=== PATIENT | male | born 1955 | race Caucasian/White ===

== ENCOUNTER 2020-02-22 06:52 | Outpatient (CLI) | payer MEDICARE, SELFPAY ==
--- NOTE | 2020-02-22 | USCV_ITS ---
Kolby Jackson Age: 65 Gender: M : 1955 Exam Date: 02/22/2020 07:18 Ordering Phys: Kasey Springer NP Technologist: Bhaskar Liriano Exam Location: [facility] [place] Indication: STENOSIS Risk Factors: Previous Vascular Surgery: Right Brachial BP: / Left Brachial BP: / Right Left Velocity (cm/s) Spectral Plaque Velocity (cm/s) Spectral Plaque Syst/Diast Broadening Syst/Diast Broadening 74.23/ 17.60 Prox CCA 71.70 / 11.00 78.30/ 14.30 Mid CCA 69.50 / 16.50 65.05/ 13.75 Distal CCA 73.90 / 15.40 82.70/ 15.40 Prox ICA 42.70 / 9.20 86.00/ 19.80 Mid ICA 77.80 / 22.20 71.70/ 18.70 Distal ICA 59.80 / 16.20 102.50 ECA 65.10 1.05 ICA/CCA 1.05 Antegrade Vertebral Antegrade 44.10/ 9.90 cm/s 48.70/ 8.50 cm/s Tri Subclavian Tri 75.00 74.30 CONCLUSIONS Right ICA stenosis <50%. Left ICA stenosis <50%. Normal antegrade Doppler flow noted in the right vertebral artery. Normal antegrade Doppler flow noted in the left vertebral artery. Toribio Castro MD (Electronically Signed) Final Date: 22 February 2020 11:18 S
--- NOTE | 2020-02-22 07:46 | ECG_ITS ---
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 Measurements Intervals [place] Rate: 51 P: -24 IN: 118 QRS: -8 QRSD: 118 T: 28 QT: 470 QTc: 434 Interpretive Statements SINUS BRADYCARDIA WITH SHORT IN INTERVAL POSSIBLE LATERAL MYOCARDIAL INFARCTION [30 ms Q WAVE IN I/aVL/V5/V6], OF INDETERMINATE AGE No previous ECG available for comparison Electronically Signed On 02-22-2020 20:32:04 BROOM MAKER by Rowan Garvey M.D. [email or web address]
== END 2020-02-22 06:53 | disposition home or self-care (01) ==
LOC: US 06:57
PROVIDERS: PCP Nurse Practitioner Family; Visit Provider Nurse Practitioner Family
DX: Z86.73 Personal history of transient ischemic attack (TIA), and cerebral infarction without residual deficits (principal); I65.23 Occlusion and stenosis of bilateral carotid arteries
CPT/HCPCS: 93005; 93880

== ENCOUNTER → 2020-02-29 08:29 | Outpatient (BNVA) | payer MEDICARE, SELFPAY | PROVIDERS: PCP Nurse Practitioner Family; Referring Provider Nurse Practitioner Family; Visit Provider Urology | DX: Z12.5 Encounter for screening for malignant neoplasm of prostate (principal); N35.919 Unspecified urethral stricture, male, unspecified site; N30.00 Acute cystitis without hematuria; R97.20 Elevated prostate specific antigen [PSA]; N40.1 Benign prostatic hyperplasia with lower urinary tract symptoms | CPT/HCPCS: 81003; 87077; 87086; 87184; G0103 ==

== ENCOUNTER → 2020-05-16 15:47 | Outpatient (BNVA) | payer MEDICARE, SELFPAY | PROVIDERS: PCP Nurse Practitioner Family; Visit Provider Internal Medicine | DX: B18.2 Chronic viral hepatitis C (principal); Z80.0 Family history of malignant neoplasm of digestive organs | CPT/HCPCS: 80053; 82105; 85025; 87902 ==

== ENCOUNTER 2020-05-31 07:03 | Outpatient (CLI) | payer MEDICARE, SELFPAY ==
--- NOTE | 2020-05-31 07:15 | US_ITS ---
WS: [id number] ULTRASOUND ABDOMEN LIMITED CLINICAL INFORMATION: B18.2 - Chronic viral hepatitis C COMPARISON: None. FINDINGS: Liver Size: Normal. Craniocaudal length: 14.1 cm. Echogenicity: Normal. Surface nodularity: None. Mass (size and location): None. Bile ducts Intrahepatic ducts: Normal. Common bile duct diameter: 0.4 cm. Gallbladder Gallbladder sludge with a Sludge ball or adherent polyp measuring 1.3 CM. No gallbladder wall thicken ing or pericholecystic fluid. Pancreas Normal as visualized. Right kidney: Normal. Hydronephrosis: None. Size: 8.3 cm x 4.8 cm x 4.7 cm. Abdominal aorta and IVC Visualized portions are normal. Ascites: None. US/US liver [id number] IMPRESSION: 1. Normal liver. 2. Gallbladder sludge with a Sludge ball or adherent polyp measuring 1.3 CM. N o gallbladder wall thickening or pericholecystic fluid. 3. Normal common bile duct. 4. No hydronephrosis right kidney.
== END 2020-05-31 07:04 | disposition home or self-care (01) ==
PROVIDERS: PCP Nurse Practitioner Family; Visit Provider Internal Medicine
DX: B18.2 Chronic viral hepatitis C (principal)
CPT/HCPCS: 76705

== ENCOUNTER → 2020-08-29 08:48 | Outpatient (BNVA) | payer MEDICARE, SELFPAY | PROVIDERS: PCP Nurse Practitioner Family; Visit Provider Urology | DX: R97.20 Elevated prostate specific antigen [PSA] (principal); N40.1 Benign prostatic hyperplasia with lower urinary tract symptoms; N39.0 Urinary tract infection, site not specified; Z87.448 Personal history of other diseases of urinary system; R33.9 Retention of urine, unspecified | CPT/HCPCS: 81003; 84153; 87077; 87086; 87184 ==

== ENCOUNTER → 2021-02-19 08:12 | Outpatient (BNVA) | payer MEDICARE, SELFPAY | PROVIDERS: PCP Nurse Practitioner Family; Visit Provider Internal Medicine | DX: B18.2 Chronic viral hepatitis C (principal) | CPT/HCPCS: 87522 ==

== ENCOUNTER → 2021-02-27 12:09 | Outpatient (BNVA) | payer MEDICARE, SELFPAY | PROVIDERS: PCP Nurse Practitioner Family; Visit Provider Urology | DX: N40.1 Benign prostatic hyperplasia with lower urinary tract symptoms (principal); N39.0 Urinary tract infection, site not specified; R33.9 Retention of urine, unspecified; R97.20 Elevated prostate specific antigen [PSA] | CPT/HCPCS: 81003; 87077; 87086; 87184 ==

== ENCOUNTER → 2021-04-11 14:25 | Outpatient (BNVA) | payer MEDICARE, SELFPAY | PROVIDERS: PCP Nurse Practitioner Family; Visit Provider Urology | DX: R33.9 Retention of urine, unspecified (principal) | CPT/HCPCS: 81003 ==

== ENCOUNTER 2021-11-28 08:25 | Outpatient (CLI) | payer MEDICARE, SELFPAY | END 2021-11-28 08:26 | disposition home or self-care (01) | LOC: LAB 08:30 | PROVIDERS: PCP Nurse Practitioner Family; Visit Provider Urology | DX: R97.20 Elevated prostate specific antigen [PSA] (principal) | CPT/HCPCS: 84153 ==

== ENCOUNTER → 2021-12-05 09:47 | Outpatient (BNVA) | payer MEDICARE, SELFPAY | PROVIDERS: PCP Nurse Practitioner Family; Visit Provider Urology | DX: N40.1 Benign prostatic hyperplasia with lower urinary tract symptoms (principal); R97.20 Elevated prostate specific antigen [PSA]; N39.0 Urinary tract infection, site not specified | CPT/HCPCS: 51741; 51798; 99213 ==

== ENCOUNTER → 2021-12-19 10:38 | Outpatient (BNVA) | payer MEDICARE, SELFPAY | PROVIDERS: PCP Nurse Practitioner Family; Visit Provider Urology | DX: N40.1 Benign prostatic hyperplasia with lower urinary tract symptoms (principal); R97.20 Elevated prostate specific antigen [PSA]; N39.0 Urinary tract infection, site not specified | CPT/HCPCS: 81003 ==

== ENCOUNTER → 2022-04-08 08:42 | Outpatient (BNVA) | payer MEDICARE, SELFPAY | PROVIDERS: PCP Nurse Practitioner Family; Visit Provider Urology | DX: N40.1 Benign prostatic hyperplasia with lower urinary tract symptoms (principal); R97.20 Elevated prostate specific antigen [PSA]; N13.8 Other obstructive and reflux uropathy | CPT/HCPCS: 51798; 81003; 99213 ==

== ENCOUNTER → 2022-06-11 15:53 | Outpatient (BNVA) | payer MEDICARE, SELFPAY | PROVIDERS: PCP Nurse Practitioner Family; Visit Provider Urology | DX: C61 Malignant neoplasm of prostate (principal); N40.1 Benign prostatic hyperplasia with lower urinary tract symptoms; R33.9 Retention of urine, unspecified | CPT/HCPCS: 99214 ==

== ENCOUNTER 2022-06-17 12:40 | Oncology outpatient (recurring) (ONCR) | payer MEDICARE, SELFPAY ==
--- NOTE | 2022-06-17 13:42 | N.ONRAD NP_ITS ---
Radiation Oncology Consultation Patient Name: Kolby Jackson Date of : 1955 Date of Service: 06/17/2022 Attending Physician: Favio Parks M.D. Kolby Jackson was seen in consultation this afternoon at the request of Akil Armas M.D. for consideration of prostate radiotherapy in the management of a recently diagnosed prostate cancer. He initially was identified to have an elevated PSA level (6.2 ng/mL) in January of 2020. Repeat PSA in August 2020 was 5.4 ng/mL and 3.4 ng/mL in November of 2021 (6.7 ng/mL correcting for finasteride). The digital rectal exam was normal. An MRI of the prostate ordered on April 23, 2022 demonstrated a 1.4 cm focus of decreased T2 weighted signal intensity within the left peripheral zone of the apex of the prostate gland (PI-RADS 4). An MRI fusion guided biopsy diagnosed a prostatic adenocarcinoma with a Kiley score of 3+4 (Grade Group 2) involving 50% of the sample from the left base and 60% of the core from the targeted lesion. Also reported was an adenocarcinoma with a Kiley score of 6 (grade group 1) in the right mid gland, right apex, left base and left apex samples. Perineural invasion was reported Patient was evaluated for prostate radiotherapy. I discussed The [place] [employer] On Cancer Staging for prostate cancer and specifically the patient???s clinical stage IIB (T1CN0) favorable intermediate-risk prostate cancer corresponding to the patient's diagnosis. I also reviewed The National Comprehensive Cancer Network Guidelines recommending active surveillance, external beam radiotherapy, brachytherapy, or surgery If he elects external beam radiotherapy, I would anticipate a 4 week course of hypofractionated prostate radiotherapy. Prior to commencement of radiotherapy, a planning CT scan will be acquired to delineate the clinical target volumes. I also discussed potential adverse events related to radiotherapy. Signed by: Favio Parks 06/17/2022 1:41:43 PM
== END 2022-06-20 23:59 | disposition home or self-care (01) ==
PROVIDERS: Visit Provider Radiology Radiation Oncology
DX: C61 Malignant neoplasm of prostate (principal); Z80.42 Family history of malignant neoplasm of prostate; Z87.891 Personal history of nicotine dependence
CPT/HCPCS: 99205